=== PATIENT | male | born 1985 | race Asian ===

== ENCOUNTER 2020-11-03 19:39 | Emergency (ER) | payer OTHER ==
[2020-11-03 20:19] VITALS: BP 148/92; PULSE 59; TEMP 98; BMI 28.1
[2020-11-03] MEDS ORDERED: VANCOMYCIN 500 MG/100 ML PRE-DOCKED IVPB ONE (20:23)
[2020-11-03] MEDS ORDERED: VANCOMYCIN 500 MG VIAL (RESTRICTED TO ID ONLY) ONE (20:28)
[2020-11-03 21:00] LABS: BASO % 1.2 % (0-2.0); EOS % 2.9 % (0-4.5); HEMATOCRIT 44.3 % (35.4-49); HEMOGLOBIN 15.2 GM/dl (11.7-16.9); LYMPH % 28.5 % (8-40); MCH 32.1 pg (25.7-33.7); MCHC 34.2 g/dl (32.0-35.9); MEAN CELL VOLUME 93.9 fl (80-96); MONO % 12.4 % (3.8-10.2); PLATELET COUNT 241 10^3/uL (134-434); RBC 4.72 M/mm3 (4.00-5.60); RDW 12.9 % (11.9-15.9); WHITE BLOOD COUNT 5.7 K/mm3 (4.0-10.8)
== END 2020-11-03 21:25 | disposition home or self-care (01) ==
LOC: FER 19:39
PROC: 3E033GC Introduction of Other Therapeutic Substance into Peripheral Vein, Percutaneous Approach (ICD-10-PCS; principal; 2020-11-03)
PROC: 3E03329 Introduction of Other Anti-infective into Peripheral Vein, Percutaneous Approach (ICD-10-PCS; 2020-11-03)
DX: S00.261A Insect bite (nonvenomous) of right eyelid and periocular area, initial encounter (principal)
CPT/HCPCS: 36415; 85025; 99284-25